=== PATIENT | female | born 1960 | race Caucasian/White ===

== ENCOUNTER 2022-03-20 12:35 | Outpatient (REF) | payer OTHER, SELFPAY ==
--- NOTE | 2022-03-20 12:46 | EEG_ITS ---
PROCEDURE: A 24 hour ambulatory EEG. The waking background activity consists of well-defined [place] voltage posterior 10 hertz alpha frequency, intermixed anteriorly with low-voltage fast frequencies. Drowsiness is characterized with diffuse theta slowing. During sleep, symmetrical frontal central sleep spindles and vertex sharp transients developed over both hemispheres. Arousals are unremarkable. The patient remains asymptomatic. No focal, lateralizing, or paroxysmal discharges seen. IMPRESSION: This 24-hour ambulatory EEG is considered within normal limits. MD TISH Massey/NATALIYA / [id number]
== END 2022-03-20 12:36 | disposition home or self-care (01) ==
LOC: HO.NEURO 12:35
PROVIDERS: PCP Internal Medicine; Visit Provider Psychiatry & Neurology Neurology
DX: R55 Syncope and collapse (principal)
CPT/HCPCS: 95708; 95957